=== PATIENT | female | born 1980 | race Caucasian/White ===

== ENCOUNTER 2020-02-19 13:06 | Emergency (ER) | payer OTHER, SELFPAY ==
[2020-02-19 13:16] VITALS: BP 137/97; PULSE 86; RESP 16; TEMP 36.8; O2SAT 100
--- NOTE | 2020-02-19 13:27 | ED.GENADULT ---
HPI - General Adult General Chief complaint: Unspecified Stated complaint: Dizzy Time Seen by Provider: 02/19/20 13:27 History of Present Illness HPI narrative: Lesly Lawson is a 39 yo female with no PMH who comes to the [facility] with complaints of dizziness that occurs intermittently for the past 2 weeks. Patient had a telemedicine visit with who says that she needs to have her blood glucose and blood work done. When patient presented, complaining of intermittent dizziness even with sitting and feeling lightheaded when she stands. Related Data Home Medications Medication Instructions Recorded Confirmed No Home Medications 02/19/20 02/19/20 Allergies Allergy/AdvReac Type Severity Reaction Status Date / Time No Known Allergies Allergy Verified 02/19/20 13:15 Review of Systems Review of Systems: Narrative: CONSTITUTIONAL: Denies fever, chills, sweats. EYES: Denies visual changes, redness, discharge. ENT: Denies rhinorrhea, congestion, sore throat, otalgia. CARDIOVASCULAR: Denies chest pain, palpitations, edema. RESPIRATORY: Denies dyspnea, wheezing, cough, GASTROINTESTINAL: Denies abdominal pain, nausea, vomiting, diarrhea. GENITOURINARY: Denies dysuria, hematuria, abnormal discharge SKIN: Denies rash or itching. NEUROLOGIC: Denies numbness, or focal weakness. Dizziness with standing at times with sitting PSYCHIATRIC: Denies anxiety or depression. PMFSH Past Medical History Medical History No acute medical problems Family History Family History Mother High cholesterol Father Diabetes mellitus Hypertension Other Heart disease Social History Social History Smoking status: Never smoker Alcohol intake: current Comments At time of signature, I agree with nursing past medical, surgical, social and family history. There is no relevant family history pertinent to the presenting complaint. Blood pressure is elevated as well as heart rate patient is aware and had telemedicine but with DrJennie today Exam Narrative: Exam Narrative: GENERAL: This is a well-nourished, morbidly obese,well-developed patient, in mild distress. States is mildly dizzy when sitting HEAD: normocephalic, atraumatic. EYES: Sclera clear/white. Vision is grossly intact. EARS: External ears normal, auditory canals clear and without drainage, TMs normal without perforation. Hearing grossly intact. NOSE: External nose normal without nasal discharge, nares without redness, no rhinorrhea. THROAT: Mucous membranes moist, posterior pharynx mild erythema NECK: Neck supple, non-tender CARDIOVASCULAR: Tachycardic rate and rhythm without murmurs, gallops, or rubs. RESPIRATORY: Clear to auscultation. Breath sounds equal bilaterally. No wheezes, rales, or rhonchi. GASTROINTESTINAL: Abdomen soft, SKIN: warm, intact with no suspicious lesions or rash, good texture and turgor. NEURO: awake, alert, and oriented to person, place and time. There were no obvious focal neurologic abnormalities. Steady gait EXTREMITIES: Normal range of motion. BACK: Nontender without deformity Course Course Emergency Course: Came to the [facility] care with complaints of intermittent dizziness x2 weeks POC glucose is 90, orthostatics show patient has orthostatic hypotension. Discussed use of meclizine and using exercises for benign positional vertigo to see if dizziness corrects itself otherwise needs to follow-up with PCP and get full blood work panel including A1c Follow-up with PCP Vital Signs Vital signs: Vital Signs Temperature 98.3 F 02/19/20 13:16 Pulse Rate 86 02/19/20 13:16 Respiratory Rate 16 02/19/20 13:16 Blood Pressure 137/97 H 02/19/20 13:16 Pulse Oximetry 100 02/19/20 13:16 Temperature 98.3 F 02/19/20 13:16 Pulse Rate 112 H 02/19/20 13:39 Respiratory Rate
[2020-02-19 13:28] LABS: Glucose Point of Care 85 (65-105)
[2020-02-19 13:38] VITALS: BP 113/67; PULSE 86
[2020-02-19 13:39] VITALS: BP 133/81; BP 141/95; PULSE 112
== END 2020-02-19 14:08 | disposition home or self-care (01) ==
PROVIDERS: Emergency Provider Nurse Practitioner; PCP Family Medicine
DX: H81.13 Benign paroxysmal vertigo, bilateral (principal)
CPT/HCPCS: 82948; 99213; G0463

== ENCOUNTER 2021-10-08 11:25 | Outpatient (CLI) | payer BC, OTHER, SELFPAY ==
[2021-10-08 11:53] LABS: Basophils Percent Auto 0.5 % (0.2-1.2); Eosinophils Absolute Auto 0.1 K/mm3 (0-0.3); Eosinophils Percent Auto 0.9 % (0-4.4); Hematocrit 38.9 % (37.0-47.0); Hemoglobin 12.6 g/dL (12.0-15.0); Immature Granulocyte Absolute 0.01 K/mm3 (0.00-0.031); Immature Granulocyte Percent A 0.2 % (0-0.5); Lymphocytes Absolute Auto 2.32 K/mm3 (0.9-3.2); Lymphocytes Percent Auto 40.9 % (18.3-44.2); Mean Corpuscular HGB Conc 32.4 g/dl (32-36); Mean Corpuscular Volume 95.8 fl (80-100); Mean Platelet Volume 8.6 fl (7.4-10.4); Monocytes Absolute Auto 0.5 K/mm3 (0.1-0.6); Monocytes Percent Auto 9.5 % (2.6-8.5); Neutrophils Absolute Auto 2.7 K/mm3 (1.3-6.7); Platelet Count Result 358 k/mm3 (150-375); Red Blood Count 4.06 M/mm3 (4.2-5.4); Red Cell Distribution Width 12.2 % (11.5-14.5); White Blood Count 5.7 K/mm3 (4.5-10.0)
== END 2021-10-08 11:26 | disposition home or self-care (01) ==
LOC: ANHSURGERY 11:32
PROVIDERS: PCP Family Medicine; Visit Provider Obstetrics & Gynecology
DX: Z01.812 Encounter for preprocedural laboratory examination (principal); N85.2 Hypertrophy of uterus
CPT/HCPCS: 36415; 85025; 86850; 86900; 86901

== ENCOUNTER 2021-10-11 00:45 | Day surgery (SDC) | payer BC, OTHER, SELFPAY ==
--- NOTE | 2021-10-07 10:08 | SUR.PREOP ---
Report to the Outpatient Waiting Room, entrance under the green pavilion located off [facility], at time 0730 on date 10/11/21. OR Time: 0930. - You and your visitor will be asked a series of questions to screen for COVID 19 for your protection. - Only one visitor is allowed at this time. - The patient visitor is requested to leave or wait in car when not with patient. - A mask is required within the hospital. Patients may have clear liquids (water, carbonated beverages, clear teas, apple juice) until 3 hours prior to surgery with a maximum of 20 ounces. - NO CLEAR LIQUIDS AFTER 0630 - No food from midnight until time of surgery - Infants may have breast milk until 4 hours before surgery, infant formula 6 hours prior to surgery. - Children will be allowed to drink immediately following surgery. If applicable, please bring a bottle or sippy cup to assist with drinking. Juice, water, soda, and popsicles are readily available. For infants on formula, please bring formula the day of surgery. Pacifiers are allowed. Please no make-up, nail paraguayan, hairspray, perfume, deodorant, or body powder the day of surgery. No jewelry (including any body piercings) or valuables the day of surgery, leave them at home. Please take a shower or bath the night before, or the morning of, surgery with an antibacterial soap. Wear comfortable, loose fitting clothing. Children are encouraged to wear pajamas. - Jewelry must be removed prior to entering the operating room. Rings and piercings that are not removed may be cut off. - The hospital will not accept responsibility for valuables. - Please leave all valuables, including medications, at home the day of surgery. If you are going home after surgery, a licensed lifter/driver must drive you home. - NO public transportation without another adult. - We recommend that an adult stay with you for 24 hours following discharge. - We also recommend that you do not drive, make important decision, drink alcoholic beverages, or take any drugs that were not prescribed by your health care provider for at least 24 hours after your discharge time. For Pediatric surgeries, we recommend two adults accompany the child home (only one inside the building at this time). Follow any additional instructions given to you from your surgeon. If you or anyone in your household have experienced Covid symptoms in the past week, please notify your surgeon or the nurse liaison at the phone number below for possible testing. Telephone instructions given to KEV KOWALSKI and asked if any additional questions and then verbalized understanding. Patient advised to call surgeon office or pre surgery nurse liaison [phone] if any additional questions.
[2021-10-07 10:17] VITALS: BMI 39.9
--- NOTE | 2021-10-10 07:31 | PM.IMHP ---
H&P: HPI History of Present Illness Date/Time: 10/10/21 07:31 Chief Complaint: pelvic pain and bleeding Narrative: this is a 40-year-old female 2 para 2 admitted for robotic total vaginal hysterectomy and bilateral salpingectomy secondary to an enlarged uterus pelvic pain and vaginal bleeding. Risks and benefits reviewed including but not exclusive of , aspiration pneumonia, bleeding, transfusion, perforation injury to bowel, bladder, ureters, or other internal organs with the need for open laparotomy. She received the ACOG handout entitled hysterectomy as well as the de [place] handout. She had all questions answered and asked to proceed PMFSH Past Medical History Medical History (Updated 10/10/21 @ 07:33 by True Swan MD) No acute medical problems Family History Family History Mother High cholesterol Father Diabetes mellitus Hypertension Other Heart disease Social History Social History Smoking status: Never smoker Alcohol intake: never Substance use: never Spiritual care concerns: No Meds Home Medications and Allergies Home Medications Medication Instructions Recorded Confirmed Type cetirizine 10 mg tablet 10 mg PO PRN ALLERGIES 10/07/21 10/07/21 History levonorgestrel 0.1 1 tablet PO DAILY 10/07/21 10/07/21 History mg-eth.estradiol 0.02 mg(21)/iron 36.5 mg(7) tablet (Balcoltra) Allergies Allergy/AdvReac Type Severity Reaction Status Date / Time No Known Allergies Allergy Verified 10/07/21 10:16 Exam : Bimanual exam- vagina & uterus: Cervical tenderness present and enlarged Assessment and Plan Assessment and plan (1) Enlarged uterus: Code(s): N85.2 - Hypertrophy of uterus Status: Acute (2) Excessive bleeding: Code(s): R58 - Hemorrhage, not elsewhere classified Status: Acute Plan robotic total vaginal hysterectomy and bilateral salpingectomies
[2021-10-11] VITALS (11 sets, daily range): BP systolic 102–135; BP diastolic 50–75; PULSE 50–80; RESP 11–20; TEMP 36.3–36.7; O2SAT 95–100
--- NOTE | 2021-10-11 07:13 | WPDHPUPDATE1 ---
History and Physical Update Update Date/Time: 10/11/21 07:13 History and Physical has been reviewed, including an updated exam of the patient. There are NO changes in the patient's condition. Risks, benefits, and alternatives have been discussed and questions answered. Patient agrees to proceed with procedure.
[2021-10-11] MEDS: ACETAMINOPHEN 500 MG TABLET 1000 MG PO (07:53)
[2021-10-11] MEDS: LACTATED RINGERS 1,000 ML 30 ML IV CONT ×2 (08:00→10:30)
[2021-10-11] MEDS: KETOROLAC 15 MG/ML VIAL (*BKC) IV PUSH (08:03)
--- NOTE | 2021-10-11 08:34 | P.PNAN_ITS ---
Anes - Initial Pre Proc Eval Procedure: Operation Date: 10/11/21 09:30 Proposed Procedures p Robotic Assisted Total Vaginal Hysterectomy with Bilateral Salpingectomy - True Swan MD Date/Time: 10/11/21 08:34 Surgeon: True Swan MD Pre Op Diagnosis: irreg bleeding, prolapse, enlarged uterus Patient Data Age: 40 Gender: F Height: 1.65 m Weight: 109.1 kg Last Vital Signs Temp 36.6 C 10/11/21 07:30 Pulse 80 10/11/21 07:30 Resp 20 10/11/21 07:30 BP 135/75 10/11/21 07:30 Pulse Ox 100 10/11/21 07:30 O2 Del Method Room Air 10/11/21 07:30 Allergies Allergy/AdvReac Type Severity Reaction Status Date / Time No Known Allergies Allergy Verified 10/11/21 07:52 Home Medications Medication Instructions Recorded Confirmed Type cetirizine 10 mg tablet 10 mg PO PRN ALLERGIES 10/07/21 10/07/21 History levonorgestrel 0.1 1 tablet PO DAILY 10/07/21 10/11/21 History mg-eth.estradiol 0.02 mg(21)/iron 36.5 mg(7) tablet (Balcoltra) hydrocodone 5 mg-acetaminophen 325 1 tablet PO Q4H PRN pain #30 tabs 10/11/21 Rx mg tablet Patient hx anesthesia problems: none Family hx anesthesia problems: none Results Review: All pre-operative results and documents have been reviewed as part of the pre- operative evaluation. [facility] Past Medical History Medical History (Updated 10/11/21 @ 08:35 by True Lara MD) Morbid obesity No acute medical problems Family History Family History Mother High cholesterol Father Diabetes mellitus Hypertension Other Heart disease Social History Social History Smoking status: Never smoker Alcohol intake: never Substance use: never Living arrangements: with family Spiritual care concerns: No Anes - Eval Final PreProcedure Day of Procedure 10/11/21 08:34 Patient weight: morbidly obese Heart: regular rate and rhythm Lungs: clear to auscultation Airway: Mallampati scale class 1 Neurological: alert and oriented Last oral intake: >/= 8 hours ASA classification: II Emergent: no Anesthesia type and monitoring: general and standard monitoring Results Review: All pre-operative results and documents have been reviewed as part of the pre- operative evaluation. Informed Consent: The patient's anesthetic plan and its attendant risks and benefits were discussed with the patient/family/POA. Questions were solicited and answers provided to the satisfaction of the patient/family/POA.
[2021-10-11] MEDS: ceFAZolin 2 GM/D5W 50 ML 2 GM/50 ML BAG IVPB (09:11)
--- NOTE | 2021-10-11 10:15 | P.OP_ITS ---
Procedure Note - Detailed Date of Procedure 10/11/21 Pre-op Diagnosis irreg bleeding, prolapse, enlarged uterus Post-op Diagnosis Same Procedure Performed Robotic total vaginal hysterectomy and bilateral salpingectomy Surgeon True Swan MD Anesthesia General Indications Is a 40-year-old female with bleeding pain enlarged uterus Findings Enlarged uterus normal-appearing ovaries and tubes Description of Procedure Patient was prepped draped in the normal sterile fashion placed in the dorsal lithotomy position. Under excellent general trach anesthesia weighted speculum placed in posterior fornix vagina. Anterior lip of the cervix grasped with single-tooth tenaculum uterus sounded 10cm. Serial dilatation with fragmented dilators performed followed by passes 10. GORDON and the 3. Cold cup. Next the 16 Mohawk catheter was placed in the bladder. Gloves were changed. Supraumbilical incision made the Veress needle passed in the abdomen. Abdomen filled with CO2 gas [id number]. The 8mm trocar advanced under direct visualization assuring no injury the patient placed in Trendelenburg and left and right lateral incisions were were made. The 8mm trocars advanced direct visualization. Right upper quadrant incision advanced in the abdomen. The robot was docked. Attention was turned to the console. The left round ligament grasped, burned, cut anterior bladder flap was formed. This was followed by sharply dissecting the peritoneum and reflecting the bladder caudally to the opposite round ligament which was clamped, burned, cut. Next the left fallopian tube was dissected from the ovarian complex and left attached the uterine origin a ruiz. This was repeated on the contralateral side remove the right tube. The left ovarian was conserved by clamping burning and cutting the left utero-ovarian ligament. This was brought to the level of previously cut round ligament. Conserving the right ovary, the utero-ovarian ligament on the right was clamped, burned, cut brought to level the previous cut round ligament next the cardinal broad ligaments were serially skeletonized clamping burning and cutting until the uterine vessels could be seen on the left. These were serially clamped, burned, cut. The right cardinal broad ligaments were serially skeletonized clamping burning and cutting until the uterine vessels could be seen on the right. These were serially clamped, burned, cut. Blanching the uterus was noticed. A colpotomy incision was made the cervix uterus and tubes removed through the vagina. The uterus was then closed with continuous running 0V lock from lateral edge to lateral edge back to the midline. Irrigation undertaken to clear the robot was undocked the gas removed from the abdomen. The incisions closed with 4-0 Monocryl and glue. The patient was awakened and went recovery in satisfactory condition. All sponge, needle, instrument counts were correct. There were no immediate complications Estimated Blood Loss 25 Drains No Packing No Pathology Yes Complications No immediate complications Condition Stable Disposition PACU
[2021-10-11] MEDS: fentaNYL CITRATE INJ (*CRX) 100 MCG/2 ML VIAL 25 MCG IV PUSH ×5 (10:48→11:20)
--- NOTE | 2021-10-11 11:37 | SUR.PHASEI ---
1115 - family member updated.
[2021-10-11] MEDS: DEXTROSE 5%/LACTATED RINGERS 1,000 ML 125 ML IV CONT (12:47)
[2021-10-11] MEDS: ONDANSETRON INJ 4 MG/2 ML VIAL IV PUSH (12:48)
[2021-10-11] MEDS: KETOROLAC 30 MG/ML VIAL (*BKC) IV PUSH (12:50)
--- NOTE | 2021-10-11 14:39 | PC.NURSE ---
This patient, Lesly Lawson, was received from PACU on 10/11/21 at 1210. Patient/family oriented to unit policies and routines
[2021-10-11] MEDS: DOCUSATE SODIUM 100 MG CAPSULE PO (16:52)
[2021-10-11] MEDS: HYDROcodone/acetaminophen (*CRX) 5-325 MG TABLET 1 TAB PO ×2 (16:52→21:11)
[2021-10-11] MEDS: SIMETHICONE 80 MG TAB.CHEW PO (21:12)
[2021-10-11] MEDS: IBUPROFEN 600 MG TABLET PO (22:16)
[2021-10-12] MEDS: SIMETHICONE 80 MG TAB.CHEW PO (03:19)
[2021-10-12] MEDS: IBUPROFEN 600 MG TABLET PO (03:21)
[2021-10-12] MEDS: HYDROcodone/acetaminophen (*CRX) 5-325 MG TABLET 1 TAB PO (03:22)
[2021-10-12 03:30] VITALS: BP 106/56; PULSE 71; RESP 18; TEMP 36.9
[2021-10-12 05:07] LABS: Basophils Percent Auto 0.1 % (0.2-1.2); Eosinophils Percent Auto 0.1 % (0-4.4); Hematocrit 33.7 % (37.0-47.0); Hemoglobin 10.8 g/dL (12.0-15.0); Immature Granulocyte Absolute 0.03 K/mm3 (0.00-0.031); Immature Granulocyte Percent A 0.3 % (0-0.5); Lymphocytes Percent Auto 22.1 % (18.3-44.2); Mean Corpuscular Hemoglobin 30.9 pg (26-34); Mean Corpuscular Volume 96.3 fl (80-100); Mean Platelet Volume 9.4 fl (7.4-10.4); Monocytes Absolute Auto 1.1 K/mm3 (0.1-0.6); Monocytes Percent Auto 10.3 % (2.6-8.5); Neutrophils Percent Auto 67.1 % (45.5-73.1); Platelet Count Result 327 k/mm3 (150-375); Red Cell Distribution Width 12.1 % (11.5-14.5); White Blood Count 10.4 K/mm3 (4.5-10.0)
[2021-10-12 06:53] VITALS: BP 112/56; PULSE 61; RESP 16; TEMP 36.9; O2SAT 98
[2021-10-12] MEDS: DOCUSATE SODIUM 100 MG CAPSULE PO (07:05)
[2021-10-12] MEDS: ENOXAPARIN 40 MG/0.4 ML SYRINGE SUB-Q (07:05)
--- NOTE | 2021-10-12 08:11 | PM.DS ---
DS: Admitting Diagnosis Discharge Date 10/12/21 Admitting Diagnosis abnormal uterine bleeding DS: Discharge Diagnosis Discharge Diagnosis (1) Excessive bleeding: Code(s): R58 - Hemorrhage, not elsewhere classified Status: Acute (2) Enlarged uterus: Code(s): N85.2 - Hypertrophy of uterus Status: Acute DS: Summary Hospital Course Hospital Course: Lesly Lawson was admitted after robotic assisted total laparoscopic hysterectomy and bilateral salpingectomy for abnormal uterine bleeding. The above procedure was performed with no complications. She is doing well post op. She states her pain is well controlled with PO medications. She reports minimal bleeding. She is ambulating up to the chair. Her العراقي catheter was removed. She is tolerating PO without N/V. She reports passing flatus. Status at Discharge Overall status at discharge: patient is progressing back to baseline Time Spent with Patient Time attestation: Total time spent providing and/or coordinating discharge services: Time spent: Less than 30 minutes Exam Const: General: comfortable and no acute distress Limitations: no limitations Resp: Effort & Inspection: normal respiratory effort Auscultation: clear to auscultation bilaterally Cardio: Rate: regular rate Rhythm: regular rhythm GI: Inspection: non-distended GI Palp: Yes Soft to palpation, Yes Tenderness to palpation present (GI) (milder tenderness to deep palpation) and No Guarding due to palpation present (GI) Auscultation: normal bowel sounds Other: incisions C/D/I covered with dermabond Urinary Catheter: Urinary Catheter: urine clear Skin: General skin exam: normal color Extrem: General: normal to inspection Psych: Mental Status: mental status grossly normal Affect: normal affect DS: Data Data Completed and Pending Pending studies at discharge: Pending at discharge 10/11/21 09:53 Surgical [PTH] Routine Labs on day of discharge: Labs from last 24 hours 10/12/21 03:11 WBC 10.4 H RBC 3.50 L Hgb 10.8 L Hct 33.7 L MCV 96.3 MCH 30.9 MCHC 32.0 RDW 12.1 Plt Count 327 MPV 9.4 Immature Gran % (Auto) 0.3 Neut % (Auto) 67.1 Lymph % (Auto) 22.1 [place] % (Auto) 10.3 H Eos % (Auto) 0.1 Baso % (Auto) 0.1 L Lymph # (Auto) 2.30 [place] # (Auto) 1.1 H Eos # (Auto) 0.0 Baso # (Auto) 0.0 Abs Immat Gran (auto) 0.03 Absolute Neuts (auto) 7.0 H Absolute Nucleated RBC 0.0 Nucleated RBC % 0.0 Discharge Plan Discharge Patient Disposition: Home, Self-Care Patient Instructions: Laparoscopic Hysterectomy (DC) Stand Alone Forms: General Discharge Instructions Follow-up/Referrals: True Carpenter MD [Physician] - Discharge Medications: New hydrocodone-acetaminophen 5-325 mg tablet 1 tablet PO Q4H PRN (Reason: pain) Qty: 30 0RF No Action Balcoltra 0.1 mg-0.02 mg (21)/36.5 mg(7) tablet 1 tablet PO DAILY cetirizine 10 mg tablet 10 mg PO PRN
== END 2021-10-12 10:37 | disposition home or self-care (01) ==
LOC: ANHSURGERY 07:18 → ANHOB2 12:08
PROVIDERS: PCP Family Medicine; Visit Provider Obstetrics & Gynecology
PROC: (CPT 58552; principal; 2021-10-11 09:30)
DX: N93.9 Abnormal uterine and vaginal bleeding, unspecified (principal); N80.0 Endometriosis of uterus; D25.0 Submucous leiomyoma of uterus; R10.2 Pelvic and perineal pain; E66.01 Morbid (severe) obesity due to excess calories; Z68.41 Body mass index [BMI] 40.0-44.9, adult
CPT/HCPCS: 58552; S2900; 36415; 85025; 88307; 99199; A9270; J0690; J1100; J1650; J1885; J2250; J2405; J2704; J2710; J3010; J7030; J7120; J7121

== ENCOUNTER → 2021-11-26 10:22 | Outpatient (CLI) | payer BC, SELFPAY ==
--- NOTE | ~2021-11-26 | MM_ITS ---
EXAMINATION: MM screening gisela BI w deysi HISTORY: Screening mammogram TECHNIQUE: Craniocaudal and mediolateral oblique 3-D tomosynthesis images were obtained and synthetic 2-D images were generated. CAD analysis was submitted and interpreted. COMPARISON: None, baseline BREAST PARENCHYMAL COMPOSITION: There are scattered areas of fibroglandular density. FINDINGS: RIGHT BREAST: There are possible masses in the posterior third of the upper outer quadrant of the charla ast. LEFT BREAST: There is no suspicious mass, calcification, or architectural distortion to suggest malig stanley. IMPRESSION: 1. Possible right breast masses 2. Additional mammographic views and possible breast ultrasound are recommended to evaluate for malig stanley and establish a baseline given that this is the first mammographic examination. BI-RADS Category 0: Incomplete: Needs additional imaging evaluation. Reviewed, dictated and finalized at location A. IMPRESSION: 1. Possible right breast masses 2. Additional mammographic views and possible breast ultrasound are recommended to evaluate for malignancy and establish a baseline given that this is the fir st mammographic examination. BI-RADS Category 0: Incomplete: Needs additional imaging evaluation.
== END ==
PROVIDERS: PCP Family Medicine; Visit Provider Obstetrics & Gynecology
DX: Z12.31 Encounter for screening mammogram for malignant neoplasm of breast (principal); R92.8 Other abnormal and inconclusive findings on diagnostic imaging of breast
CPT/HCPCS: 77063; 77067

== ENCOUNTER → 2021-12-11 08:20 | Outpatient (CLI) | payer BC, MEDICAID, SELFPAY ==
--- NOTE | ~2021-12-11 | MMUS_ITS ---
EXAMINATION: MM diagnostic gisela RT w deysi, US breast RT limited HISTORY: Possible right breast masses reported in posterior third of upper outer quadrant on 2 screening mammogram examination TECHNIQUE: Additional 3-D tomosynthesis images of the right breast were performed and synthetic 2-D i mages were generated. CAD analysis was submitted and interpreted. High resolution upper outer quadran t right breast ultrasound was performed. COMPARISON: 11/26/2021 bilateral screening mammogram FINDINGS: MAMMOGRAPHIC FINDINGS: A couple of 5 mm or smaller circumscribed opacities with halo sign are noted in the upper outer quadr ant of the right breast, suggesting cysts. No suspicious mass, architectural distortion or any malignant calcification, skin thickening or retra ction is detected. ULTRASOUND: 11:00 6 cm from nipple: 1.8 x 2.7 x 3.6 mm sonolucency consistent with small cyst 10:00 8 cm from nipple: 2.3 x 2.8 mm sonolucency with through transmission and posterior enhancement, consistent with small cyst 10:00 6 cm from nipple: 5.3 x 4.1 x 6.2 mm sonolucency with through transmission, consistent with cys t No suspicious mass or shadowing is detected in the upper outer quadrant of right breast. IMPRESSION: 1. Benign cysts 2. Routine mammographic screening is recommended. BI-RADS Category 2: Benign finding(s). Reviewed, dictated and finalized at location A. IMPRESSION: 1. Benign cysts 2. Routine mammographic screening is recommended. BI-RADS Category 2: Benign finding(s).
== END ==
PROVIDERS: PCP Family Medicine; Visit Provider Obstetrics & Gynecology
DX: R92.8 Other abnormal and inconclusive findings on diagnostic imaging of breast (principal)
CPT/HCPCS: 76642; 77061; 77065; G0279

== ENCOUNTER 2022-04-22 10:29 | Outpatient (CLI) | payer BC, MEDICAID, SELFPAY ==
--- NOTE | 2022-04-22 | ECG_ITS ---
Measurements Intervals Steele Rate: 78 P: 25 DE: 158 QRS: 12 QRSD: 85 T: 8 QT: 356 QTc: 408 Interpretive Statements SINUS RHYTHM NO PREVIOUS ECG AVAILABLE FOR COMPARISON Electronically Signed On 04-22-2022 15:32:41 PREMIUM CANCELLATION CLERK by Mckenzie De Anda M.D.
--- NOTE | ~2022-04-22 | XR_ITS ---
XR chest 2V DATE: 04/22/2022 11:08 INDICATION: Dyspnea on exertion TECHNIQUE: PA and lateral views COMPARISON: 04/28/2016 PA and lateral chest FINDINGS: Normal heart size. No hilar or mediastinal enlargement. No pulmonary infiltrate or consolid ation, pleural effusion or pulmonary vascular congestion or pneumothorax. 26 degrees dextroscoliosis of the thoracic spine measured from T6 to T11. IMPRESSION: No active cardiopulmonary disease Thoracic dextroscoliosis Reviewed, dictated and finalized at location B. [employer]
== END 2022-04-22 10:30 | disposition home or self-care (01) ==
LOC: ANHCARD 10:32
PROVIDERS: PCP Family Medicine; Visit Provider Nurse Practitioner Adult Health
DX: R06.09 Other forms of dyspnea (principal); M41.84 Other forms of scoliosis, thoracic region
CPT/HCPCS: 71046; 93005

== ENCOUNTER 2022-05-07 10:12 | Emergency (ER) | payer BC, MEDICAID, SELFPAY ==
[2022-05-07 10:17] VITALS: BP 136/78; PULSE 80; RESP 16; TEMP 36.7; O2SAT 100
--- NOTE | 2022-05-07 10:46 | ED.URI ---
HPI - URI/Sore Throat General Chief Complaint: Upper Respiratory Infection Stated Complaint: uri Time Seen by Provider: 05/07/22 10:30 Source: patient Mode of arrival: ambulatory Limitations: no limitations History of Present Illness HPI Narrative: Ms. Lawson is a 41-year-old female patient presenting to the clinic today with complaints of cough, congestion, and mild sore throat times 2-3 days. She reports she has been exposed to COVID and influenza. She denies any known fever or chills MD elicited complaint: sore throat and nasal congestion Related Data Home Medications Medication Instructions Recorded Confirmed cetirizine 10 mg tablet 10 mg PO PRN ALLERGIES 10/07/21 05/07/22 cholecalciferol (vitamin D3) 25 25 mcg PO DAILY 04/24/22 05/07/22 mcg (1,000 unit) tablet multivitamin with minerals-folic 1 tablet PO DAILY 04/24/22 05/07/22 acid 0.4 mg tablet Allergies Allergy/AdvReac Type Severity Reaction Status Date / Time No Known Allergies Allergy Verified 05/07/22 10:18 Review of Systems Review of Systems: Pertinent positives per HPI. Patient denies any fever, chills, rash, headache, visual changes, dizziness, shortness of breath, chest pain, palpitations, nausea, vomiting, diarrhea, constipation, abdominal pain, or any urinary issues. PMFSH Past Medical History Medical History Morbid obesity No acute medical problems Family History Family History Mother High cholesterol Father Diabetes mellitus Hypertension Other Heart disease Social History Social History Smoking status: Never smoker Alcohol intake: never Substance use: never Substance use type: does not use Spiritual care concerns: No Comments At the time of my signature, I reviewed and agree with the nursing past medical, surgical, social, and family history. There is no relevant family history pertinent to the patient complaint. Exam Narrative: General: Well-developed, well nourished, in no apparent distress Head: Normocephalic, atraumatic Eyes: Pupils equally round and reactive to light bilaterally, EOM intact, sclera and conjunctive clear, no discharge, lids normal Ears: TMs intact and dull, ear canals clear, no drainage, grossly hearing normal. Nose: Nares patent, clear nasal discharge, no inflammation, no sinus tenderness. Mouth: Oral pharynx without lesions or masses, good dentition, MMM. oropharynx mildly red Neck: Supple, trachea midline, no enlargement of anterior or posterior cervical nodes, no thyroid masses or goiter palpable. Cardio: Regular rate and rhythm, s1 and s2 normal, no murmur appreciated. Resp: Clear to auscultation bilaterally, no rhonchi, rales, wheezing or rubs Course Course Emergency Course: Portions of this record may have been created with voice recognition software. Level of Care: Express Care Visit Vital Signs Vital signs: Vital Signs Temperature 36.7 C 05/07/22 10:17 Pulse Rate 80 05/07/22 10:17 Respiratory Rate 16 05/07/22 10:17 Blood Pressure 136/78 05/07/22 10:17 Pulse Oximetry 100 05/07/22 10:17 Oxygen Delivery Room Air 05/07/22 10:17 Temperature 36.7 C 05/07/22 10:17 Pulse Rate 80 05/07/22 10:17 Respiratory Rate 16 05/07/22 10:17 Blood Pressure 136/78 05/07/22 10:17 Pulse Oximetry 100 05/07/22 10:17 Oxygen Delivery Room Air 05/07/22 10:17 Vital signs reviewed MDM - URI/Sore Throat MDM Narrative Medical decision making narrative: At the time of visit patient is resting comfortably on the exam table. COVID testing was negative in the clinic today. Unfortunately we do not have any influenza test. I suspect the patient has URI /viral pharyngitis / viral syndrome. Supportive measures were discussed with the patient she voiced understanding o
== END 2022-05-07 10:58 | disposition home or self-care (01) ==
PROVIDERS: Emergency Provider Nurse Practitioner Family; PCP Family Medicine
DX: J06.9 Acute upper respiratory infection, unspecified (principal); J02.9 Acute pharyngitis, unspecified; B34.9 Viral infection, unspecified; Z20.822 Contact with and (suspected) exposure to COVID-19; E66.01 Morbid (severe) obesity due to excess calories; Z68.41 Body mass index [BMI] 40.0-44.9, adult
CPT/HCPCS: 87426; 99213; C9803; G0463

== ENCOUNTER 2022-05-22 10:25 | Emergency (ER) | payer BC, MEDICAID, SELFPAY ==
--- NOTE | ~2022-05-22 | XR_ITS ---
Right ankle Technique: AP, oblique, and lateral views were obtained. Clinical History: Pain Findings: No acute fracture or dislocation is seen. Osseous alignment is anatomic. Ankle mortise and other visualized joint spaces are preserved. Soft tissues are otherwise unremarkable. Impression: Unremarkable right ankle. Reviewed, dictated and finalized at location . L PIN MAN Impression: Unremarkable right ankle.
--- NOTE | ~2022-05-22 | XR_ITS ---
Left ankle Technique: AP, oblique, and lateral views were obtained. Clinical History: Pain Findings: No acute fracture or dislocation is seen. Osseous alignment is anatomic. Ankle mortise and other visualized joint spaces are preserved. Soft tissues are otherwise unremarkable. Impression: Unremarkable left ankle. Reviewed, dictated and finalized at location . [facility] Impression: Unremarkable left ankle.
[2022-05-22 10:41] VITALS: BP 134/73; PULSE 87; RESP 18; TEMP 36.8; O2SAT 100
--- NOTE | 2022-05-22 11:46 | ED.LOWEXIN ---
HPI - Extremity Injury (Lower) General Chief Complaint: Extremity Injury, Lower Stated Complaint: foot injury Time Seen by Provider: 05/22/22 11:16 Source: patient Mode of arrival: wheelchair Limitations: no limitations History of Present Illness HPI Narrative: This is a 41-year-old female that presents to the emergency department after a fall today with bilateral ankle pain. Reports she was stepping off of her front porch and landed on her right ankle twisting it. She then stepped onto her left ankle and twisted it as well. She fell about 10 inches. Reports decreased range of motion of the bilateral ankles and pain. She did not hit her head or lose consciousness. She denies any other injuries. Denies numbness. Related Data Home Medications Medication Instructions Recorded Confirmed cetirizine 10 mg tablet 10 mg PO PRN ALLERGIES 10/07/21 05/07/22 cholecalciferol (vitamin D3) 25 25 mcg PO DAILY 04/24/22 05/07/22 mcg (1,000 unit) tablet multivitamin with minerals-folic 1 tablet PO DAILY 04/24/22 05/07/22 acid 0.4 mg tablet Allergies Allergy/AdvReac Type Severity Reaction Status Date / Time No Known Allergies Allergy Verified 05/22/22 11:15 Review of Systems Review of Systems: CONSTITUTIONAL: Denies fever SKIN: Denies rash MUSCULOSKELETAL: Reports joint pain, and myalgia. NEUROLOGIC: Denies numbness, or weakness. All systems reviewed & are unremarkable except as noted in HPI and below PMFSH Past Medical History Medical History Morbid obesity No acute medical problems Family History Family History Mother High cholesterol Father Diabetes mellitus Hypertension Other Heart disease Social History Social History Smoking status: Never smoker Alcohol intake: never Substance use: never Substance use type: does not use Spiritual care concerns: No Exam Narrative: GENERAL: Well-appearing, well-nourished, and in no acute distress. HEAD: Normocephalic, atraumatic. EYES: EOMI. CHEST: No respiratory distress. HEART: Regular rate EXTREMITIES: Decreased active range of motion in the bilateral ankles due to pain. No edema or obvious deformity. Normal DP pulse. Normal sensation. Achilles tendons are intact SKIN: Warm, dry, no rash. NEURO: No focal deficits. Alert and oriented x3. PSYCH: Normal mood and affect Course Vital Signs Vital signs: Vital Signs Temperature 98.3 F 05/22/22 10:41 Pulse Rate 87 05/22/22 10:41 Respiratory Rate 18 05/22/22 10:41 Blood Pressure 134/73 05/22/22 10:41 Pulse Oximetry 100 05/22/22 10:41 Oxygen Delivery Room Air 05/22/22 10:41 Temperature 98.3 F 05/22/22 10:41 Pulse Rate 87 05/22/22 10:41 Respiratory Rate 18 05/22/22 10:41 Blood Pressure 134/73 05/22/22 10:41 Pulse Oximetry 100 05/22/22 10:41 Oxygen Delivery Room Air 05/22/22 10:41 MDM - Extremity Injury (Lower) MDM Narrative Medical decision making narrative: Patient presents to the emergency department after a fall today with bilateral ankle pain. She is neurovascularly intact. Bilateral ankle x-rays are without acute osseous abnormalities. Patient was instructed on care of ankle sprain. She does report she has a boot at home. Placed in bilateral Bi wraps in the meantime. She reports she had tried crutches and this was not working very well. She was encouraged to use a walker as needed. She is to follow-up with primary care provider. She was given warnings to return to the ER Differential Diagnosis Differential diagnosis: Likely ankle sprain and strain and ankle fracture Imaging Data Radiologist's impression: ITS Impressions Ankle X-Ray 05/22/22 11:04 Impression: Unremarkable left ankle. Ankle X-Ray 05/22/22 11:05 Impression: Unremar
== END 2022-05-22 12:10 | disposition home or self-care (01) ==
PROVIDERS: Emergency Provider Physician Assistant; PCP Family Medicine
DX: S93.402A Sprain of unspecified ligament of left ankle, initial encounter (principal); S93.401A Sprain of unspecified ligament of right ankle, initial encounter; E66.01 Morbid (severe) obesity due to excess calories; Z68.41 Body mass index [BMI] 40.0-44.9, adult; X50.9XXA Other and unspecified overexertion or strenuous movements or postures, initial encounter
CPT/HCPCS: 73610; 99284

== ENCOUNTER 2022-06-04 00:55 | Day surgery (SDC) | payer BC, MEDICAID, SELFPAY ==
[2022-04-24 13:59] VITALS: BMI 39.9
--- NOTE | 2022-05-22 12:34 | PC.NURSE ---
Spoke with patient and verified new date and time of procedure. Patient also verified that no changes have been made to medications and no new medical history.
[2022-06-04 07:35] VITALS: BP 126/76; PULSE 77; RESP 16; TEMP 36.3; O2SAT 100
[2022-06-04] MEDS: LACTATED RINGERS 1,000 ML 150 ML IV CONT (07:38)
--- NOTE | 2022-06-04 08:25 | P.PNAN_ITS ---
Anes - Initial Pre Proc Eval Procedure: Operation Date: 06/04/22 09:00 Proposed Procedures p Esophagogastroduodenoscopy EGD - Naga Fragoso MD Date/Time: 06/04/22 08:25 Surgeon: Naga Fragoso MD Pre Op Diagnosis: Globus sensation Patient Data Age: 41 Gender: F Height: 1.65 m Weight: 121.3 kg Last Vital Signs Temp 97.3 F L 06/04/22 07:35 Pulse 77 06/04/22 07:35 Resp 16 06/04/22 07:35 BP 126/76 06/04/22 07:35 Pulse Ox 100 06/04/22 07:35 O2 Del Method Room Air 06/04/22 07:35 Allergies Allergy/AdvReac Type Severity Reaction Status Date / Time No Known Allergies Allergy Verified 06/04/22 07:34 Home Medications Medication Instructions Recorded Confirmed Type cetirizine 10 mg tablet 10 mg PO PRN ALLERGIES 10/07/21 06/04/22 History cholecalciferol (vitamin D3) 25 25 mcg PO DAILY 04/24/22 06/04/22 History mcg (1,000 unit) tablet multivitamin with minerals-folic 1 tablet PO DAILY 04/24/22 06/04/22 History acid 0.4 mg tablet Patient hx anesthesia problems: none Family hx anesthesia problems: none Results Review: All pre-operative results and documents have been reviewed as part of the pre- operative evaluation. [facility] Past Medical History Medical History Morbid obesity No acute medical problems Family History Family History Mother High cholesterol Father Diabetes mellitus Hypertension Other Heart disease Social History Social History Smoking status: Never smoker Alcohol intake: never Substance use: never Substance use type: does not use Living arrangements: with family Spiritual care concerns: No Anes - Eval Final PreProcedure Day of Procedure 06/04/22 08:25 Patient weight: morbidly obese Heart: regular rate and rhythm Lungs: clear to auscultation Airway: Mallampati scale class II Neurological: alert and oriented Last oral intake: >/= 8 hours ASA classification: III Emergent: no Anesthetic plan: proceed Anesthesia type and monitoring: general GIVS and standard monitoring Results Review: All pre-operative results and documents have been reviewed as part of the pre- operative evaluation. Informed Consent: The patient's anesthetic plan and its attendant risks and benefits were discussed with the patient/family/POA. Questions were solicited and answers provided to the satisfaction of the patient/family/POA.
--- NOTE | 2022-06-04 08:46 | PM.HPGS ---
History of Present Illness History of Present Illness Consent: Risks, benefits, and alternatives have been discussed and questions answered. Patient agrees to proceed with procedure. Chief complaint: Globus sensation Narrative: Lesly Lawson is a 41 year old female with sensation of lump in throat, not taking any med Review of Systems Constitutional: Constitutional: Denies headache(s) and Denies weakness Eyes: Eyes: Denies blurry vision ENT: Reports Normal hearing present, Denies headache(s) and Denies neck pain Cardiovascular: Cardiovascular: Denies chest pain and Denies dyspnea Respiratory: Respiratory: Denies dyspnea Gastrointestinal: Gastrointestinal: Reports no additional gastrointestinal complaints Genitourinary: Genitourinary: Denies dysuria Musculoskeletal: Musculoskeletal: Denies neck pain Integumentary/Breasts: Skin/Breast: Denies dry skin Neurologic: Reports Normal hearing present, Denies headache(s) and Denies weakness Psychiatric: Psychiatric: Denies anxiety Endocrine: Endocrine: Denies change in body appearance Hematologic/Lymphatic: Hematologic/Lymphatic: Denies easy bleeding Allergic/Immunologic: Allergic/Immunologic: Denies urticaria PMFSH Past Medical History Medical History (Updated 06/04/22 @ 08:46 by Naga Fragoso MD) Lump in throat Morbid obesity No acute medical problems Family History Family History Mother High cholesterol Father Diabetes mellitus Hypertension Other Heart disease Social History Social History Smoking status: Never smoker Alcohol intake: never Substance use: never Substance use type: does not use Living arrangements: with family Spiritual care concerns: No Meds Home Medications and Allergies Home Medications Medication Instructions Recorded Confirmed Type cetirizine 10 mg tablet 10 mg PO PRN ALLERGIES 10/07/21 06/04/22 History cholecalciferol (vitamin D3) 25 25 mcg PO DAILY 04/24/22 06/04/22 History mcg (1,000 unit) tablet multivitamin with minerals-folic 1 tablet PO DAILY 04/24/22 06/04/22 History acid 0.4 mg tablet Allergies Allergy/AdvReac Type Severity Reaction Status Date / Time No Known Allergies Allergy Verified 06/04/22 07:34 Vital Signs Vital Signs - 24 hr 06/04/22 07:35 Temperature 97.3 F L Pulse Rate 77 Respiratory Rate 16 Blood Pressure 126/76 Pulse Oximetry 100 Oxygen Delivery Room Air Exam Const: General: comfortable and no acute distress HENMT: Face/Nose/Sinus: Normal nares present Eyes: General: appearance normal, both eyes and all related structures Neck: Neck: no JVD Resp: Auscultation: clear to auscultation bilaterally Cardio: Rate: regular rate Rhythm: regular rhythm GI: Inspection: non-distended GI Palp: Yes Soft to palpation Skin: General skin exam: normal color Neuro: General: gait normal Speech: normal speech Extrem: General: normal to inspection Psych: Mental Status: mental status grossly normal Assessment and Plan Assessment and plan (1) Lump in throat: Code(s): R22.1 - Localized swelling, mass and lump, neck Status: Acute Assessment and Plan: egd with bx
[2022-06-04 09:02] VITALS: BP 115/88; PULSE 85; RESP 24; O2SAT 100
[2022-06-04 09:12] VITALS: BP 120/73; PULSE 77; RESP 19; O2SAT 100
[2022-06-04 09:22] VITALS: BP 121/72; PULSE 67; RESP 18; O2SAT 100
== END 2022-06-04 09:33 | disposition home or self-care (01) ==
PROVIDERS: PCP Family Medicine; Visit Provider Internal Medicine Gastroenterology
PROC: 0DJ08ZZ Inspection of Upper Intestinal Tract, Via Natural or Artificial Opening Endoscopic (ICD-10-PCS; CPT 43235; principal; 2022-06-04 09:00)
DX: R22.1 Localized swelling, mass and lump, neck (principal); E66.01 Morbid (severe) obesity due to excess calories; Z68.41 Body mass index [BMI] 40.0-44.9, adult
CPT/HCPCS: 43239; 88305; J2704; J7120

== ENCOUNTER → 2023-02-11 10:19 | Outpatient (CLI) | payer BC, MEDICAID, SELFPAY ==
--- NOTE | ~2023-02-11 | MM_ITS ---
EXAMINATION: MM screening gisela BI w deysi HISTORY: Screening mammogram TECHNIQUE: Craniocaudal and mediolateral oblique 3-D tomosynthesis images were obtained and synthetic 2-D images were generated. CAD analysis was submitted and interpreted. COMPARISON: 12/11/2021 diagnostic right mammogram and limited right breast ultrasound 11/26/2021 bilateral screening mammogram BREAST PARENCHYMAL COMPOSITION: There are scattered areas of fibroglandular density. FINDINGS: There is no evidence of suspicious mass, calcification, or architectural distortion to sugg est malignancy in either breast. There has been no suspicious interval change. IMPRESSION: 1. No mammographic evidence of malignancy. 2. Recommend routine screening mammography in one year. BI-RADS Category 1: Negative Reviewed, dictated and finalized at location A.
== END ==
PROVIDERS: PCP Family Medicine; Visit Provider Obstetrics & Gynecology
DX: Z12.31 Encounter for screening mammogram for malignant neoplasm of breast (principal)
CPT/HCPCS: 77063; 77067

== ENCOUNTER 2023-06-17 16:13 | Emergency (ER) | payer BC, SELFPAY ==
[2023-06-17 16:28] VITALS: BP 119/76; PULSE 76; RESP 16; TEMP 36.9; O2SAT 99
--- NOTE | 2023-06-17 17:03 | ED.GENADULT ---
HPI - General Adult General Chief complaint: Skin/Abscess/Foreign Body Stated complaint: blepharitis itching eyelids,face,hairline Source: patient, RN notes reviewed and old records reviewed Mode of arrival: ambulatory Limitations: no limitations History of Present Illness HPI narrative: a 42-year-old female presents to [facility] with complaints itching and redness to forehead and scalp and eyes. 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 Related Data Home Medications Medication Instructions Recorded Confirmed cetirizine 10 mg tablet 10 mg PO PRN ALLERGIES 10/07/21 06/17/23 cholecalciferol (vitamin D3) 25 25 mcg PO DAILY 04/24/22 06/17/23 mcg (1,000 unit) tablet multivitamin with minerals-folic 1 tablet PO DAILY 04/24/22 06/17/23 acid 0.4 mg tablet Allergies Allergy/AdvReac Type Severity Reaction Status Date / Time No Known Allergies Allergy Verified 06/17/23 16:21 Review of Systems Constitutional: Constitutional: Reports no additional constitutional complaints, Denies body ache(s), Denies chills, Denies fatigue, Denies fever(s) and Denies headache(s) Eyes: Eyes: Reports no additional eye complaints and Denies blurry vision ENT: Reports system reviewed and no additional complaints, except as documented, Denies vertigo, Denies dizziness, Denies ear discharge, Denies otalgia, Denies facial pain, Denies headache(s), Denies nasal congestion, Denies nasal discharge, Denies sinus pain, Denies sinus pressure and Denies sore throat Cardiovascular: Cardiovascular: Reports no additional cardiovascular complaints, Denies chest pain, Denies chest pain at rest, Denies rapid heart rate and Denies dyspnea Respiratory: Respiratory: Reports no additional respiratory complaints, Denies chest congestion, Denies cough, Denies pain on inspiration, Denies pain with cough and Denies dyspnea Gastrointestinal: Gastrointestinal: Denies abdominal pain, Denies diarrhea, Denies nausea and Denies vomiting Integumentary/Breasts: Skin/Breast: Reports pruritus and Reports rash Neurologic: Reports system reviewed and no additional complaints, except as documented, Denies vertigo, Denies dizziness and Denies headache(s) Endocrine: Endocrine: Denies fatigue PMFSH Past Medical History Medical History Lump in throat Morbid obesity No acute medical problems Family History Family History Mother High cholesterol Father Diabetes mellitus Hypertension Other Heart disease Social History Social History Smoking status: Never smoker Alcohol intake: never Substance use: never Substance use type: does not use Living arrangements: with family Spiritual care concerns: No Comments At the time of my signature, I reviewed and agree with the nursing past medical, surgical, social, and family history. There is no relevant family history pertinent to the patient complaint. Exam Const: General: cooperative, healthy appearing, no acute distress and well nourished Nutritional Appearance: well nourished Orientation/consciousness: patient oriented x3 Limitations: no limitations HENMT: Head: normal to inspection and normocephalic Ears: external ears normal, TM's normal bilaterally, mastoids normal and Abnormal EAC present Face/Nose/Sinus: normal facial exam Face and sinus: normal facial exam Mouth: Yes Normal oral and palatal mucosa present, Yes oropharynx normal and Yes moist mucous membranes Throat: tonsils normal, uvula midline and no uvular edema Eyes: General: appearance normal, both eyes and all related structures Sclera: sclerae normal Pupils: Equal, round and r
== END 2023-06-17 17:13 | disposition home or self-care (01) ==
PROVIDERS: Emergency Provider Registered Nurse; PCP Family Medicine
DX: L30.9 Dermatitis, unspecified (principal); E66.01 Morbid (severe) obesity due to excess calories; Z68.41 Body mass index [BMI] 40.0-44.9, adult
CPT/HCPCS: 99213; G0463

== ENCOUNTER 2023-08-15 11:05 | Emergency (ER) | payer BC, SELFPAY ==
[2023-08-15 11:22] VITALS: BP 126/79; PULSE 117; RESP 16; TEMP 37.3; O2SAT 100
--- NOTE | 2023-08-15 11:32 | ED.URI ---
HPI - URI/Sore Throat General Chief Complaint: Upper Respiratory Infection Stated Complaint: Sinus/Sore Throat Source: patient and RN notes reviewed Mode of arrival: ambulatory Limitations: no limitations History of Present Illness HPI Narrative: 42-year-old female presented for complaint of headache, body aches, sinus pressure/congestion, cough, fever/chills. onset 2 days. Endorses daughter had strep throat 2 weeks ago. Taking Tylenol for headache. Denies sob, wheezing, n/v/d. MD elicited complaint: cough Related Data Home Medications Medication Instructions Recorded Confirmed cetirizine 10 mg tablet 10 mg PO PRN ALLERGIES 10/07/21 06/17/23 cholecalciferol (vitamin D3) 25 25 mcg PO DAILY 04/24/22 06/17/23 mcg (1,000 unit) tablet multivitamin with minerals-folic 1 tablet PO DAILY 04/24/22 06/17/23 acid 0.4 mg tablet Allergies Allergy/AdvReac Type Severity Reaction Status Date / Time No Known Allergies Allergy Verified 06/17/23 16:21 Review of Systems Review of Systems: CONSTITUTIONAL: Endorses malaise, chills, sweats, fever EYES: Denies visual changes, redness, or discharge ENT: Reports rhinorrhea, congestion, sinus pain, otalgia, sore throat CARDIOVASCULAR: Denies chest pain, palpitations, edema RESPIRATORY: Reports cough, post nasal drainage. Denies dyspnea GASTROINTESTINAL: Denies abdominal pain, nausea, vomiting, diarrhea SKIN: Denies rash or itching MUSCULOSKELETAL: Endorses myalgia NEUROLOGIC: Endorses headache PMFSH Past Medical History Medical History Lump in throat Morbid obesity No acute medical problems Family History Family History Mother High cholesterol Father Diabetes mellitus Hypertension Other Heart disease Social History Social History Smoking status: Never smoker Alcohol intake: never Substance use: never Substance use type: does not use Living arrangements: with family Spiritual care concerns: No Exam Narrative: GENERAL: mildly Ill-appearing, nontoxic no acute distress. EYES: PERRLA, conjunctivae clear ENT: Mucous membranes moist. TMs pearly wright with dull light reflex bilaterally; no tragal tenderness. Oropharynx mildly erythematous without lesions or exudate, no drooling, no hoarseness, no trismus, uvula midline. No tripod positioning, muffled voice, soft palate or pharyngeal wall bulging NECK: Supple. No lymphadenopathy CHEST: Clear to auscultation, breath sounds equal. No wheezing, rhonchi, rales, or stridor. No respiratory distress, speaks in full sentences. HEART: Regular rate and rhythm. No murmur heard. SKIN: Warm, dry, no rash. NEURO: Alert and oriented x3. PSYCH: Normal mood and affect Course Course Emergency Course: Patient is aware of diagnosis, understands and agrees to treatment plan. Anticipatory guidance given. Patient agrees to follow-up as directed and is aware of reasons to seek care at the emergency department. Portions of this record may have been created with voice recognition software Level of Care: Express Care Visit Vital Signs Vital signs: Vital Signs Temperature 99.1 F 08/15/23 11:22 Pulse Rate 117 H 08/15/23 11:22 Respiratory Rate 16 08/15/23 11:22 Blood Pressure 126/79 08/15/23 11:22 Pulse Oximetry 100 08/15/23 11:22 Oxygen Delivery Room Air 08/15/23 11:22 Temperature 99.1 F 08/15/23 11:22 Pulse Rate 117 H 08/15/23 11:22 Respiratory Rate 16 08/15/23 11:22 Blood Pressure 126/79 08/15/23 11:22 Pulse Oximetry 100 08/15/23 11:22 Oxygen Delivery Room Air 08/15/23 11:22 reviewed MDM - URI/Sore Throat MDM Narrative Medical decision making narrative: POS covid. Neg flu and strep. Results reviewed with patient. Discussed physical exam findings. Advised supportive measures and signs/symptoms
== END 2023-08-15 12:00 | disposition home or self-care (01) ==
PROVIDERS: Emergency Provider Nurse Practitioner Family; PCP Family Medicine
DX: U07.1 COVID-19 (principal); E66.01 Morbid (severe) obesity due to excess calories; Z68.41 Body mass index [BMI] 40.0-44.9, adult
CPT/HCPCS: 87081; 87426; 87804; 87880; 99213; G0463

== ENCOUNTER 2024-04-17 11:05 | Emergency (ER) | payer BC, SELFPAY ==
[2024-04-17 11:20] VITALS: BP 134/81; PULSE 103; RESP 12; TEMP 37.1; O2SAT 97
--- NOTE | 2024-04-17 11:33 | ED.URI ---
HPI - URI/Sore Throat General Chief Complaint: Upper Respiratory Infection Stated Complaint: sore throat,ears hurt,rundown,cough Time Seen by Provider: 04/17/24 11:33 Source: patient Mode of arrival: ambulatory Limitations: no limitations History of Present Illness HPI Narrative: 43-year-old female presents with complaint of nasal congestion, runny nose, postnasal drainage, sore throat and cough for 3 days. Afebrile. Not taking any cgsk-zii-lbtrtta medications to treat symptoms. Is taking honey for cough. No chest pain or shortness breath. Denies nausea vomiting diarrhea. All systems reviewed and negative except as noted above. Related Data Home Medications Medication Instructions Recorded Confirmed fexofenadine 180 mg tablet 180 mg PO DAILY 04/17/24 04/17/24 Allergies Allergy/AdvReac Type Severity Reaction Status Date / Time No Known Allergies Allergy Verified 04/17/24 11:17 Review of Systems Review of Systems: CONSTITUTIONAL: Denies fever, chills, or sweats. Reports fatigue. EYES: Denies visual changes, redness, or discharge. ENT: Reports rhinorrhea, congestion, sore throat. Denies otalgia. CARDIOVASCULAR: Denies chest pain, palpitations, or edema. RESPIRATORY: reports cough. Denies dyspnea. GASTROINTESTINAL: Denies abdominal pain, nausea, vomiting, or diarrhea. GENITOURINARY: Denies dysuria or hematuria. SKIN: Denies rash or itching. MUSCULOSKELETAL: Denies back pain, joint pain, or myalgia. NEUROLOGIC: Denies headache, numbness, or weakness. PSYCHIATRIC: Denies anxiety or depression. All other systems reviewed are negative, except as documented in HPI. [facility] Past Medical History Medical History Lump in throat Morbid obesity No acute medical problems Family History Family History Mother High cholesterol Father Diabetes mellitus Hypertension Other Heart disease Social History Social History Smoking status: Never smoker Alcohol intake: never Substance use: never Substance use type: does not use Living arrangements: with family Spiritual care concerns: No Comments At time of signature, agree with nursing past medical, surgical, social and family history. There is no relevant family history pertinent to the presenting complaint. Exam Narrative: GENERAL: This is a well-nourished, well-developed patient, in no apparent distress. HEAD: normocephalic, atraumatic. EYES: PERRL. Sclera clear/white. Vision is grossly intact. EARS: External ears normal, auditory canals clear and without drainage, TMs normal without perforation. Hearing grossly intact. NOSE: External nose normal with mild congestion, clear nasal drainage, mild erythema THROAT: Mucous membranes moist, erythema with clear postnasal drainage NECK: Neck supple, non-tender without lymphadenopathy, masses or thyromegaly. CARDIOVASCULAR: Regular rate and rhythm without murmurs, gallops, or rubs. RESPIRATORY: Clear to auscultation. Breath sounds equal bilaterally. No wheezes, rales, or rhonchi. SKIN: warm, Dry, intact with no suspicious lesions or rash, good texture and turgor. NEURO: awake, alert, and oriented to person, place and time. There were no obvious focal neurologic abnormalities. EXTREMITIES: No joint tenderness, effusion, or edema noted. Course Course Level of Care: Express Care Visit Vital Signs Vital signs: Vital Signs Temperature 37.1 C 04/17/24 11:20 Pulse Rate 103 H 04/17/24 11:20 Respiratory Rate 12 04/17/24 11:20 Blood Pressure 134/81 04/17/24 11:20 Pulse Oximetry 97 04/17/24 11:20 Oxygen Delivery Room Air 04/17/24 11:20 Temperature 37.1 C 04/17/24 11:20 Pulse Rate 103 H 04/17/24 11:20 Respiratory Rate 12 04/17/24 11:20 Blood Pressure 134/81 04/17/24 11:20 Pulse Oximetry 97 04/17/24 11:20 Oxygen Delivery Room Air 04/17/24 11:20 reviewed MDM - URI/Sore Throat MDM Narrative Medical decision making narrative: negative COVID, influenza and strep. Patient well-appearing, symptoms are viral. Recommend treating with cqxx-eum-lybkcfe medications. Patient is aware of diagnosis, understands and agrees to treatment plan. Anticipatory guidance given. Patient agrees to follow-up as directed and is aware of reasons to seek care at the emergency department. Portions of this record may have been created with voice recognition software Differential Diagnosis Differential diagnosis: Likely upper respiratory infection, sinusitis, viral infection, influenza and pharyngitis Lab Data Labs: Lab Results 04/17/24 Range/Units 11:20 POC Influenza A Ag Negative (Negative) POC Influenza B Ag Negative (Negative) POC SARS CoV-2 Ag Negative (Negative) POC Grp A Strep Screen Negative (Negative) Discharge Plan Discharge Clinical Impression: Viral upper respiratory tract infection with cough Patient Disposition: Home, Self-Care Condition: Stable Instructions: Upper Respiratory Infection (ED) Additional Instructions: your COVID, influenza and strep test were negative today. A strep culture was ordered and results will take 24-48 hours. If your strep culture is positive we will call you at that time and prescribed an antibiotic. Your symptoms are viral and may last 10-14 days. Taking lgik-vbu-xpktyrz medication to treat her symptoms such as DayQuil NyQuil cold and flu. Drink plenty of water and rest. Drink hot tea with honey to soothe throat and treat cough. Place cool mist humidifier in bedroom where you sleep. Follow-up with your primary care physician if symptoms are not improving. Prescriptions: No Action fexofenadine [Betina] 180 mg Tablet 180 mg PO DAILY Follow-up/Referrals: Rebel Brock MD [Primary Care Provider] - Time of Disposition: 11:58
[2024-04-17 11:53] LABS: EDCOVIDSCREEN Negative (Negative); EDINFLUASCREEN Negative (Negative); EDINFLUBSCREEN Negative (Negative); EDSTREPNEGPOS1 Negative (Negative)
== END 2024-04-17 12:05 | disposition home or self-care (01) ==
PROVIDERS: Emergency Provider Nurse Practitioner Family; PCP Family Medicine
DX: J06.9 Acute upper respiratory infection, unspecified (principal); R05.9 Cough, unspecified; Z20.822 Contact with and (suspected) exposure to COVID-19; E66.01 Morbid (severe) obesity due to excess calories; Z68.41 Body mass index [BMI] 40.0-44.9, adult
CPT/HCPCS: 87081; 87426; 87804; 87880; 99213; G0463

== ENCOUNTER 2024-07-10 08:49 | Emergency (ER) | payer BC, SELFPAY ==
[2024-07-10 08:58] VITALS: BP 136/90; PULSE 81; RESP 16; TEMP 35.8; O2SAT 98
--- NOTE | 2024-07-10 09:17 | ED.URI ---
HPI - URI/Sore Throat General Chief Complaint: Upper Respiratory Infection Stated Complaint: cough,BUTT,congestion Source: patient Mode of arrival: ambulatory Limitations: no limitations History of Present Illness HPI Narrative: 43-year-old female presents to [facility] with complaints of 3-4 day history of productive cough of yellow-colored phlegm, chest congestion, runny nose, nasal congestion, bilateral ear pressure and shortness of breath with exertion. Patient reports that she has a history of bronchitis and walking pneumonia but her symptoms feel different this time. Patient takes Betina daily. Patient also has been taking kkhu-nzs-mnpnech DayQuil and NyQuil with little relief. Patient reports that her children were sick with cold-like symptoms last week. Patient denies wheezing, fever, body aches, chills, nausea, vomiting or diarrhea. MD elicited complaint: rhinorrhea and nasal congestion Onset (ago): day(s) (3-4) Consistency: intermittent Able to tolerate fluids by mouth: Yes Context: sick contacts Treatments prior to arrival: cold medicine Related Data Home Medications ?Medication ?Instructions ?Recorded ?Confirmed ?Last Taken ?Type fexofenadine 180 mg tablet 180 mg PO DAILY 04/17/24 07/10/24 Unknown History Allergies Allergy/AdvReac Type Severity Reaction Status Date / Time No Known Allergies Allergy Verified 07/10/24 08:59 Review of Systems Constitutional: Constitutional: Denies chills, Denies fatigue, Denies fever(s) and Denies weakness ENT: Denies dizziness, Denies epistaxis, Reports nasal congestion and Denies sore throat Respiratory: Respiratory: Reports chest congestion, Reports cough, Denies dyspnea and Denies wheezing Gastrointestinal: Gastrointestinal: Denies diarrhea, Denies nausea and Denies vomiting Integumentary/Breasts: Skin/Breast: Denies rash Neurologic: Denies syncope, Denies headache(s) and Denies focal weakness PMFSH Past Medical History Medical History Lump in throat Morbid obesity No acute medical problems Family History Family History Mother High cholesterol Father Diabetes mellitus Hypertension Other Heart disease Social History Social History Smoking status: Never smoker Alcohol intake: never Substance use: never Substance use type: does not use Living arrangements: with family Spiritual care concerns: No Comments At time of signature, I agree with nursing past medical, surgical, social and family history. There is no relevant family history pertinent to the presenting complaint. Exam Const: General: healthy appearing and no acute distress Nutritional Appearance: well nourished Orientation/consciousness: patient oriented x3 Limitations: no limitations HENMT: Head: normal to inspection Ears: external ears normal, TM's normal bilaterally and EAC's normal Face/Nose/Sinus: Normal external nose present Mouth: Yes Normal oral and palatal mucosa present, Yes lip normal and Yes moist mucous membranes Throat: posterior oropharynx normal and uvula midline Other: Mild nasal congestion noted Eyes: Conjunctivae: conjunctivae normal Neck: Neck: normal visual inspection Resp: Effort & Inspection: normal respiratory effort and not labored Auscultation: clear to auscultation bilaterally, no crackles, no rales, no rhonchi and no wheezes Cardio: Rate: regular rate Rhythm: regular rhythm Heart sounds: no murmurs Skin: General skin exam: normal color Rashes: no rashes Wounds: no wounds Neuro: General: patient oriented x3 and moves all extremities Speech: normal speech Gait exam (Neuro): Normal gait present Psych: Affect: normal affect Attitude: cooperative Course Course Level of Care: Express Care Visit Vital Signs Vital signs: Vital Signs Temperature 35.8 C L 07/10/24 08:58 Pulse Rate 81 07/10/24 08:58 Respiratory Rate 16 07/10/24 08:58 Blood Pressure 136/90 07/10/24 08:58 Pulse Oximetry 98 07/10/24 08:58 Oxygen Delivery Room Air 07/10/24 08:58 Temperature 35.8 C L 07/10/24 08:58 Pulse Rate 81 07/10/24 08:58 Respiratory Rate 16 07/10/24 08:58 Blood Pressure 136/90 07/10/24 08:58 Pulse Oximetry 98 07/10/24 08:58 Oxygen Delivery Room Air 07/10/24 08:58 MDM - URI/Sore Throat MDM Narrative Medical decision making narrative: discussed negative COVID and influenza results with patient. Patient understands the symptoms are likely viral at this time. Patient declined chest x-ray. Patient agrees to continue Betina daily. Patient agrees to follow-up with primary care provider if symptoms not improving and to proceed to the emergency room if symptoms worsen Differential Diagnosis Differential diagnosis: Likely upper respiratory infection, otitis media and sinusitis Lab Data Labs: negative COVID and influenza Critical Care Time Critical Care Time Critical Care Time: No Discharge Plan Discharge Clinical Impression: Viral infection Patient Disposition: Home, Self-Care Condition: Stable Instructions: Viral Syndrome (ED) Additional Instructions: rest increase fluids continue Betina daily Take Medrol Dosepak as prescribed Take Tessalon as needed for cough Follow-up with primary care provider if symptoms not improving proceed to the emergency room if symptoms worsen Patient Language: Fijian Prescriptions: New methylprednisolone [Medrol (Kaushik)] 4 mg tablets,dose pack See Rx Instructions .ROUTE .COMPLEX Qty: 21 0RF Rx Instructions: for 6 days benzonatate 100 mg capsule 100 mg PO BID PRN (Reason: cough) Qty: 20 0RF No Action fexofenadine [Betina] 180 mg Tablet 180 mg PO DAILY Follow-up/Referrals: Rebel Brock MD [Primary Care Provider] - Time of Disposition: 09:22
[2024-07-10 09:50] LABS: EDCOVIDSCREEN Negative (Negative); EDINFLUASCREEN Negative (Negative); EDINFLUBSCREEN Negative (Negative)
== END 2024-07-10 09:25 | disposition home or self-care (01) ==
PROVIDERS: Emergency Provider Nurse Practitioner Family; PCP Family Medicine
DX: B34.9 Viral infection, unspecified (principal); Z20.822 Contact with and (suspected) exposure to COVID-19; E66.01 Morbid (severe) obesity due to excess calories; Z68.41 Body mass index [BMI] 40.0-44.9, adult
CPT/HCPCS: 87426; 87804; 99213; G0463

== ENCOUNTER 2024-12-08 08:12 | Outpatient (CLI) | payer BC, MEDICAID, SELFPAY ==
--- NOTE | ~2024-12-08 | MR_ITS ---
EXAMINATION: MR knee LT wo con DATE: 12/08/2024 08:52 INDICATION: Left knee pain TECHNIQUE: Magnetic resonance imaging (MRI) of the left knee was performed without intravenous contra st. Sequences included coronal PD-weighted FSE, coronal PD-weighted FS FSE, sagittal T2-weighted FSE , sagittal PD-weighted FS FSE and axial PD weighted fat saturated FSE. COMPARISON: None. FINDINGS: Medial compartment: Radial tear at the posterior root of the medial meniscus. Mild medial extrusion body medial meniscus with increased signal extending to contact the inferior articular surface on 3 consecutive images con sistent with longitudinal tear. There is thickening and amorphous increased intrasubstance signal of the intervening posterior body and posterior horn which does not contact the articular surface consis tent with mucoid degeneration. There is partial thickness chondral ulceration involving greater than 50% the cartilage thickness but without degenerative subchondral changes along portions of the anteri or to central weightbearing medial femoral condyle. Cartilage appears relatively preserved at the pos terior weightbearing medial femoral condyle and at the medial tibial plateau although there is subart icular edema centered along the medial margin of the medial tibial plateau. Lateral compartment: Lateral meniscus is normal. Articular cartilage is normal. Patellofemoral compartment: Small region of deep chondral ulceration and fissuring with underlying subarticular cystlike change a t the inferolateral aspect of the medial trochlea. Remaining cartilage the patellofemoral compartment is normal. Ligaments and tendons: Anterior and posterior cruciate ligaments are normal. The fibular collateral ligament complex is norm al. The extensor mechanism is normal. There is thickening and mild increased signal of the proximal m edial collateral ligament without significant surrounding edema consistent with mild scarring related to chronic sprain. The visualized medial and lateral hamstring tendons as well as the iliotibial ban d are normal. Fluid: Small to moderate-sized left knee joint effusion. No loose osteochondral bodies identified. Small to moderate-sized Altamirano's cyst measuring 3.8 cm craniocaudally by 2.1 x 1.1 cm in maximal transaxial dim ensions. Osseous/other: No fracture or pathologic marrow replacing process. IMPRESSION: 1. Medial meniscal tear with avulsion/radial tear of the posterior root, small marginal tear extendin g to the inferior articular surface at the anterior body and likely degeneration the intervening post erior body and posterior horn. 2. 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 2. Unchanged mild scarring related to chronic sprain of the proximal medial collateral ligament. 4. Small left knee joint effusion and small to moderate-sized Altamirano's cyst. Reviewed, dictated and finalized at location A. IMPRESSION: 1. Medial meniscal tear with avulsion/radial tear of the posterior root, small marginal tear extending to the inferior articular surface at the anterior body and likely degeneration the intervening posterior body and posterior horn. 2. 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 2. Unchanged mild scarring related to chronic sprain of the proximal medial col lateral ligament. 4. Small left knee joint effusion and small to moderate-sized Altamirano's cyst.
== END 2024-12-08 08:13 | disposition home or self-care (01) ==
LOC: MICIMG 08:13
PROVIDERS: PCP Family Medicine; Visit Provider Nurse Practitioner Family
DX: S83.232A Complex tear of medial meniscus, current injury, left knee, initial encounter (principal); M17.12 Unilateral primary osteoarthritis, left knee; M22.42 Chondromalacia patellae, left knee; S83.4 Sprain of collateral ligament of knee; M25.462 Effusion, left knee; M71.22 Synovial cyst of popliteal space [Baker], left knee
CPT/HCPCS: 73721